=== PATIENT | female | born 1965 | race Two or more races ===

== ENCOUNTER 2025-03-04 22:19 | Emergency (ER) | payer MEDICAID ==
[~2025-03-04] VITALS: Ht 170.2 cm; Wt 68.0 kg
[2025-03-04] MEDS ORDERED: HYDROMORPHONE 1 MG/1 ML DISP.SYRIN ONE (23:10)
[2025-03-04] MEDS ORDERED: ONDANSETRON ODT 4 MG TAB.RAPDIS ONE (23:10)
[2025-03-04] MEDS: HYDROMORPHONE 1 MG/1 ML DISP.SYRIN IM ONE (23:14)
[2025-03-04] MEDS: ONDANSETRON ODT 4 MG TAB.RAPDIS SL ONE (23:14)
[2025-03-05 02:00] VITALS: BP 124/71
[2025-03-05] MEDS ORDERED: ONDANSETRON ODT 4 MG TAB.RAPDIS ONE (03:00)
[2025-03-05] MEDS ORDERED: HYDROMORPHONE 1 MG/1 ML DISP.SYRIN ONE (03:01)
[2025-03-05] MEDS: ONDANSETRON ODT 4 MG TAB.RAPDIS SL ONE (03:02)
[2025-03-05] MEDS: HYDROMORPHONE 1 MG/1 ML DISP.SYRIN IM ONE (03:03)
[2025-03-05] MEDS ORDERED: GABA300C PO (03:13)
[2025-03-05] MEDS ORDERED: GABA100C PO (03:13)
[2025-03-05 03:26] VITALS: BP 137/68; TEMP 98; O2SAT 98
== END 2025-03-05 03:27 | disposition home or self-care (01) ==
LOC: ER 22:30
DX: S09.8XXA Other specified injuries of head, initial encounter (principal); T14.8XXA Other injury of unspecified body region, initial encounter; M25.512 Pain in left shoulder; M25.511 Pain in right shoulder; M54.2 Cervicalgia; E03.9 Hypothyroidism, unspecified; M54.9 Dorsalgia, unspecified; Z79.899 Other long term (current) drug therapy; Z87.39 Personal history of other diseases of the musculoskeletal system and connective tissue; W01.0XXA Fall on same level from slipping, tripping and stumbling without subsequent striking against object, initial encounter; Y93.89 Activity, other specified; Y92.89 Other specified places as the place of occurrence of the external cause; Y99.8 Other external cause status
CPT/HCPCS: 99285; 70450; 73030; 72131; 96372 ×2; J1171 ×2; A4606; A4663; Q0162

== ENCOUNTER 2025-04-09 23:37 | Emergency (ER) | payer MEDICAID ==
[~2025-04-09] VITALS: Ht 170.2 cm; Wt 68.0 kg
[2025-04-09 23:37] VITALS: BP 107/76
[~2025-04-09 23:37] MED LIST: GABA300C PO
[2025-04-10] MEDS ORDERED: KETOROLAC TROMETHAMINE 30 MG INJ ONE (00:27)
[2025-04-10 00:35] LABS: PLATELET COUNT (AUTO) 248 K/uL (179-408); RED BLOOD CELL COUNT(AUTO) 4.10 MIL/uL (3.63-4.92); RED CELL DISTRIBUTION WIDTH 14.8 % (12.3-17.7); WHITE BLOOD COUNT (AUTO) 7.1 K/uL (3.8-11.8)
[2025-04-10 00:42] LABS: *BILIRUBIN,URIN NEGATIVE (NEGATIVE); *BLOOD, URINE NEGATIVE (NEGATIVE); *CLARITY,URINE CLEAR (CLEAR); *COLOR,URINE YELLOW (YELLOW); *KETONES,URINE TRACE (NEGATIVE); *PROTEIN,URINE NEGATIVE (NEGATIVE); *UROBILINOGEN,URINE 1.0 E.U./dl (NORMAL); LEUKOCYTE ESTERASE ,URINE TRACE (NEGATIVE); NITRITE, URINE NEGATIVE (NEGATIVE); UGLUCOSE NEGATIVE (NEGATIVE)
[2025-04-10 00:43] LABS: CREATININE 0.6 mg/dL (0.6-1.3); SODIUM SERUM 139.0 mmol/L (136-145); UREA NITROGEN, BLOOD 14.0 mg/dL (7-18)
[2025-04-10] MEDS: KETOROLAC TROMETHAMINE 30 MG INJ IVP ONE (00:43)
[2025-04-10 00:46] LABS: ETHANOL < 3 MG/DL (0-10)
[2025-04-10 00:49] LABS: ASPARTATE AMINOTRANSFERASE 10.0 U/L (15-37); TOTAL PROTEIN, SERUM 7.7 g/dL (6.4-8.2)
[2025-04-10 00:53] LABS: *AMPHETAMINE, URINE NEGATIVE (NEGATIVE); *BARBITURATE, URINE NEGATIVE (NEGATIVE); *BENZODIAZEPINE, URINE NEGATIVE (NEGATIVE); *CANNABINOID, URINE NEGATIVE (NEGATIVE); *COCCAINE, URINE NEGATIVE (NEGATIVE); *OPIATE, URINE NEGATIVE (NEGATIVE); *PHENCYCLIDINE SCREEN,URINE NEGATIVE (NEGATIVE); FENTANYL, URINE NEGATIVE (NEGATIVE)
[2025-04-10 01:02] LABS: SQUAMOUS EPITHELIAL CELL,UR MODERATE /HPF (NONE SEEN)
[2025-04-10] MEDS ORDERED: GABA-532 PO (02:13)
[2025-04-10 02:25] VITALS: BP 107/76; O2SAT 99
== END 2025-04-10 02:25 | disposition home or self-care (01) ==
LOC: ER 23:48
DX: R51.9 Headache, unspecified (principal); R11.0 Nausea; E03.9 Hypothyroidism, unspecified; Z79.899 Other long term (current) drug therapy; Z87.39 Personal history of other diseases of the musculoskeletal system and connective tissue
CPT/HCPCS: 99285; 80053; 81001; 83880; 85025; 84484; 36415; 70450; 93005; 96374; 80320; 80307; J1885; A4606; A4663; G0480